=== PATIENT | male | born 1975 | race Caucasian/White ===

== ENCOUNTER 2017-10-21 08:39 | Emergency (ER) | payer MEDICAID ==
[~2017-10-21] VITALS: Ht 167.6 cm; Wt 94.0 kg
[2017-10-21 08:42] VITALS: Ht 167.6 cm; Wt 94.0 kg
--- NOTE | 2017-10-21 09:09 | ERD ---
ER Documentation Chief Complaint Chief Complaint Blacked out getting out bed to restroom, found shaking by bed by spouse HPI 42-year-old male presents to the ED with his for evaluation of an episode of loss of consciousness and shaking. As reported by the patient's , he was getting out of bed this morning when he began having shaking to his whole body and fell back on the bed. Episode lasted approximately 1-2 minutes after which he was confused but now is back to baseline. There was no urinary or fecal incontinence. Patient has had similar episodes in the past. The first was approximately 12 years ago and extensive workup was performed however he is not aware of the results. He has had 2 similar episodes since then over the last several years most recently 2 years ago. Since the first episode he describes intermittent, generalized, gradual onset, not maximal moderate headaches that are relieved by Tylenol. No neck or back pain. He denies visual changes, focal weakness or numbness. No shortness of breath, chest pain or palpitation. Denies abdominal pain, nausea, vomiting, diarrhea or constipation. No hematemesis, hematochezia or melanotic stools. Denies leg pain or swelling. No URI symptoms, rhinorrhea or odynophagia. Admits to recent worsening stressors in his life but denies depression, sedations, suicidal or homicidal ideations. No insomnia or dietary changes. No fevers or chills. ROS All systems reviewed and are negative except as per history of present illness. Medications Home Meds Active Scripts Phenytoin* Sodium Extended (Dilantin*) 300 Mg Capsule, 300 MG PO HS for 21 Days , CAP Prov:ADAL SOL MD 10/21/17 Allergies Allergies: Coded Allergies: No Known Allergy (Unverified , 10/21/17) PMhx/Soc Reviewed in chart. As per HPI. History of Surgery: No Anesthesia Reaction: No Hx Neurological Disorder: No Hx Respiratory Disorders: No Hx Cardiac Disorders: No Hx Psychiatric Problems: No Hx Miscellaneous Medical Probl: No Hx Alcohol Use: No Hx Substance Use: No Hx Tobacco Use: No FmHx No seizures, stroke or cancer. No coronary artery disease or sudden cardiac . Physical Exam Vitals Vital Signs Date Time Temp Pulse Resp B/P Pulse Ox O2 Delivery O2 Flow Rate FiO2 10/21/17 08:42 98.1 77 18 150/107 98 Physical Exam Const: Alert, anxious but in no acute distress. Head: Atraumatic Eyes: Pupils equal and reactive to light. No nystagmus. Normal Conjunctiva ENT: Normal External Ears, Nose and Mouth. No intraoral trauma or tongue biting. Neck: Full range of motion. Carotids 2+ bilaterally without bruits. No JVD. No meningismus. Resp: Breath sounds are equal and clear to auscultation bilaterally Cardio: Regular rate and rhythm, no murmurs, gallops or rubs. Abd: Soft, non tender, non distended. Normal bowel sounds. No masses or abnormal pulsations. Skin: No petechiae or rashes Back: No midline or flank tenderness Ext: No cyanosis, or edema. Pulses 4+ in all extremities. No calf swelling or tenderness. Neur: Awake and alert. Cranial nerves II through XII are grossly intact. Motor and sensory are equal bilaterally. Normal gait. DTRs are symmetrical. No focal deficit observed. Psych: Cooperative. Appears anxious but not depressed. Normal judgment. Result Diagram: 10/21/1790410/21/17904 Results 24 hrs Laboratory Tests Test 10/21/17 09:05 10/21/17 09:10 10/21/17 09:59 White Blood Count 8.210^3/ul Red Blood Count 5.5610^6/ul Hemoglobin 17.0g/dl Hematocrit 47.8% Mean Corpuscular Volume 86.0fl Mean Corpuscular Hemoglobin 30.6pg Mean Corpuscular Hemoglobin Concent 35.6g/dl Red Cell Distribution Width 13.5% Platelet Count 50573^3/UL Mean Platelet Volume 10.5fl Neutrophils % 52.8% Lymphocytes % 38.7% Monocytes % 6.2% Eosinophils % 1.1% Basophils % 1.1% Nucleated Red Blood Cells % 0.0/100WBC Neutrophils # 4.310^3/ul Lymphocytes # 3.210^3/ul Monocytes # 0.510^3/ul Eosinophils # 0.110^3/ul Basophils # 0.110^3/ul Nucleated Red Blood Cells # 0.010^3/ul Sodium Level 143mmol/L Potassium Level 3.4mmol/L Chloride Level 103mmol/L Carbon Dioxide Level 25mmol/L Anion Gap 18 Blood Urea Nitrogen 9mg/dl Creatinine 0.92mg/dl Glucose Level 153mg/dl Calcium Level 9.1mg/dl Total Bilirubin 0.5mg/dl Direct Bilirubin 0.00mg/dl Indirect Bilirubin 0.5mg/dl Aspartate Amino Transf (AST/SGOT) 33IU/L Alanine Aminotransferase (ALT/SGPT) 60IU/L Alkaline Phosphatase 84IU/L Troponin I < 0.012ng/ml Total Protein 7.9g/dl Albumin 4.6g/dl Globulin 3.30g/dl Albumin/Globulin Ratio 1.39 Ethyl Alcohol Level < 10.0mg/dl Urine Opiates Screen Negative Urine Barbiturates Negative Urine Amphetamines Screen Negative Urine Benzodiazepines Screen Negative Urine Cocaine Screen Negative Urine Cannabinoids Negative Bedside Glucose 125mg/dL Current Medications Medications (Trade) Dose Ordered Sig/Kandi Route PRN Reason Start Time Stop Time Status Last Admin Dose Admin Ketorolac Tromethamine 15 mg 15 mg ONCE STAT IV 10/21/17 10:11 10/21/17 10:12 DC 10/21/17 10:19 Phenytoin/Sodium Chloride (Dilantin/NS) 120 ml @ 240 mls/hr ONCE ONCE IV 10/21/17 10:30 10/21/17 10:59 DC 10/21/17 10:39 EKG: TIME: 09:13. Sinus rhythm. Ventricular rate 80. Sinus arrhythmia but no ectopy. Normal VA and QRS. No ST-T wave changes. Normal QTC. EP Interpretation: Normal ECG. IMAGING: PROCEDURE: CT brain without contrast CLINICAL INDICATION: Seizures, fall TECHNIQUE: CT of the brain without contrast was performed on a multidetector CT scanner, with multiplanar reformats. One or more of the following dose reduction techniques were used: Automated exposure control, adjustment in mA and / or kV according to patient size, use of iterative reconstructive technique. CTDIvol = 45 mGy; DLP = 720 mGy-cm. DICOM images are available. COMPARISON: None available FINDINGS: No acute intracranial hemorrhage is identified. No extra-axial fluid collection is seen. There is no mass effect. No midline shift is identified. Ventricles and sulci are within normal limits for size and configuration. The density of the brain is unremarkable. Gibson-white differentiation is preserved. Calvarium and skull base are intact. Mastoid air cells and imaged paranasal sinuses grossly clear. IMPRESSION: Unremarkable noncontrast CT of the brain. RPTAT: HH .Pawan Felder MD, MD Date Time Electronically viewed and signed by .Pawan Felder MD, MD on 10/21/2017 09:42 .O/ Procedures/MDM DOCUMENTS REVIEWED: ED nurse, no prior records available MEDICAL DECISION MAKIN-year-old male presents to the ED with his for evaluation of an episode of loss of consciousness and shaking. CT of the brain performed to evaluate for mass, bleed, infarct, hydrocephalus and is unremarkable as described above. No evidence of cardiac dysrhythmia. No electrolyte or abnormalities. As this is his fourth episode, anticonvulsants will be initiated pending followup. Stable for discharge of precautionary instructions and outpatient follow-up as counseled. DMV report filed. Counseled patient and family regarding diagnostic workup, diagnosis and need for followup. Understands to return to ED if symptoms recur, worsen or any other concerns. Departure Diagnosis: Primary Impression: Seizure Additional Impression: Loss of consciousness Condition: Stable ADAL SOL MD Oct 21, 2017 09:09
[2017-10-21 09:34] LABS: BASOPHIL # 0.1 10^3/ul (0.0-0.1); BASOPHILS % 1.1 % (0.0-2.0); EOSINOPHILS # 0.1 10^3/ul (0.0-0.5); EOSINOPHILS % 1.1 % (0.0-7.0); HEMATOCRIT 47.8 % (42.0-52.0); LYMPHOCYTES # 3.2 10^3/ul (0.8-2.9); LYMPHOCYTES % 38.7 % (15.0-51.0); MEAN CORPUSCULAR HEMOGLOBIN 30.6 pg (29.0-33.0); MEAN CORPUSCULAR HGB CONC 35.6 g/dl (32.0-37.0); MEAN PLATELET VOLUME 10.5 fl (7.4-10.4); MONOCYTE # 0.5 10^3/ul (0.3-0.9); MONOCYTES % 6.2 % (0.0-11.0); NEUTROPHIL # 4.3 10^3/ul (1.6-7.5); NEUTROPHILS % 52.8 % (39.0-77.0); PLATELET COUNT 267 10^3/UL (140-415); RED BLOOD COUNT 5.56 10^6/ul (4.70-6.10); RED CELL DISTRIBUTION WIDTH 13.5 % (11.5-14.5); WHITE BLOOD COUNT 8.2 10^3/ul (4.8-10.8)
--- NOTE | 2017-10-21 09:42 | RADRPT ---
PROCEDURE: CT brain without contrast CLINICAL INDICATION: Seizures, fall TECHNIQUE: CT of the brain without contrast was performed on a multidetector CT scanner, with multi planar reformats. One or more of the following dose reduction techniques were used: Automated expos ure control, adjustment in mA and / or kV according to patient size, use of iterative reconstructive technique. CTDIvol = 45 mGy; DLP = 720 mGy-cm. DICOM images are available. COMPARISON: None available FINDINGS: No acute intracranial hemorrhage is identified. No extra-axial fluid collection is seen. There is no mass effect. No midline shift is identified. Ventricles and sulci are within normal limits for size and configuration. The density of the brain is unremarkable. Gibson-white differentiation is preserved. Calvarium and skull base are intact. Mastoid air cells and imaged paranasal sinuses grossly clear. IMPRESSION: Unremarkable noncontrast CT of the brain. RPTAT: HH .Pawan Felder MD, Date Time Electronically viewed and signed by .Pawan Felder MD, on 10/21/2017 09:42 .O/
[2017-10-21 09:57] LABS: BARBITURATES Negative (NEGATIVE); BENZODIAZEPINES Negative (NEGATIVE); CANNABINOIDS Negative (NEGATIVE); COCAINE Negative (NEGATIVE); OPIATES Negative (NEGATIVE)
[2017-10-21 10:00] LABS: ALANINE AMINOTRANSFERASE 60 IU/L (13-69); ALBUMIN 4.6 g/dl (3.3-4.9); ALBUMIN/GLOBULIN RATIO 1.39; ALKALINE PHOSPHATASE 84 IU/L (42-121); ANION GAP 18 (8-16); ASPARTATE AMINO TRANSFERASE 33 IU/L (15-46); BILIRUBIN,INDIRECT 0.5 mg/dl (0-1.1); BILIRUBIN,TOTAL 0.5 mg/dl (0.2-1.3); BLOOD UREA NITROGEN 9 mg/dl (7-20); CALCIUM 9.1 mg/dl (8.4-10.2); CARBON DIOXIDE 25 mmol/L (21-31); CHLORIDE 103 mmol/L (97-110); CREATININE 0.92 mg/dl (0.61-1.24); GLUCOSE 153 mg/dl (70-220); POTASSIUM 3.4 mmol/L (3.5-5.1); SODIUM 143 mmol/L (135-144); TOTAL PROTEIN 7.9 g/dl (6.1-8.1)
[2017-10-21 10:04] LABS: ETHANOL < 10.0 mg/dl
[2017-10-21] MEDS ORDERED: KETOROLAC 15 MG INJ IV STA (10:11)
[2017-10-21 10:14] LABS: TROPONIN-I < 0.012 ng/ml (0.00-0.12)
[2017-10-21] MEDS ORDERED: PHENYTOIN 1,000 MG in SOD CHLORIDE 0.9% 100 ML IV ONE (10:30)
[2017-10-21] MEDS ORDERED: PHEN300C2 PO (10:43)
== END 2017-10-21 12:02 | disposition home or self-care (01) ==
LOC: E/R 08:39
DX: R40.4 Transient alteration of awareness (principal)
CPT/HCPCS: 36415; 70450; 80053; 80306; 80307; 82962; 84484; 85025; 93005; 96374; 96375; J1165; J1885; Z7502; Z7610

== ENCOUNTER 2018-04-24 12:20 | Day surgery (SDC) | END 2018-04-24 16:24 | disposition home or self-care (01) ==